=== PATIENT | male | born 1985 | race Caucasian/White ===

== ENCOUNTER 2017-10-25 19:11 | Emergency (ER) | payer OTHER ==
[~2017-10-25] VITALS: Ht 182.9 cm; Wt 110.9 kg
[2017-10-25] MEDS ORDERED: DEPAKOTE500 MG PO (19:21)
[2017-10-25] MEDS ORDERED: STRATTERA40 MG PO (19:21)
[2017-10-25] MEDS ORDERED: BUSPAR10 MG PO (19:22)
[2017-10-25] MEDS ORDERED: PROZAC40 MG PO (19:22)
[2017-10-25] MEDS ORDERED: AMPHETAMINE SAL30 MG PO (19:23)
[2017-10-25] MEDS ORDERED: DEPAKENE250 MG PO (19:23)
[2017-10-25] MEDS ORDERED: PAXIL10 MG PO (19:24)
[2017-10-25] MEDS ORDERED: ROBAXIN750 MG PO (19:24)
[2017-10-25] MEDS ORDERED: MOTRIN800 MG PO (19:24)
[2017-10-25] MEDS ORDERED: SUBOXONE 8 MG-1 EAC2 SL (19:25)
[2017-10-25] MEDS ORDERED: BUSPAR15 MG PO (19:26)
[2017-10-25] MEDS ORDERED: PAMELOR50 MG PO (19:27)
[2017-10-25] MEDS ORDERED: NEURONTIN600 MG PO (19:27)
[2017-10-25] MEDS ORDERED: SEROQUEL400 MG PO (19:27)
[2017-10-25 21:53] LABS: HEMATOCRIT 37.1 % (38.0-50.0); HEMOGLOBIN 12.5 G/DL (12.5-16.6); MCHC 33.7 G/DL (30.0-36.0); MCV 89.2 FL (86-99); PLATELET COUNT 220 K/uL (156-360); RBC DIS.WIDTH-CV 13.1 % (11.8-14.6); RBC DIS.WIDTH-SD 42.9 % (39-53); RED BLOOD COUNT 4.16 M/uL (4.00-5.50); WHITE BLOOD COUNT 6.7 K/uL (4.1-10.2)
[2017-10-25 22:03] LABS: ALBUMIN 4.6 g/dL (3.2-4.8); D-DIMER ELISA < 150.00 ng/mLDDU (<230)
[2017-10-25 22:04] LABS: CHLORIDE 102 mEq/L (99-109); POTASSIUM 3.9 mEq/L (3.7-5.4); SODIUM 139 mEq/L (136-147)
[2017-10-25 22:06] LABS: GLUCOSE 87 mg/dL (70-99); TOTAL PROTEIN 7.5 g/dL (6.4-8.3)
[2017-10-25 22:08] LABS: TOTAL BILIRUBIN 0.5 mg/dL (0.0-1.0)
[2017-10-25 22:09] LABS: ALKALINE PHOSPHATASE 70 IU/L (3-129)
[2017-10-25 22:10] LABS: GFR ESTIMATE (CALCULATED) > 59 mL/min/ (58.99-99999)
[2017-10-25 22:11] LABS: AST (GOT) 26 IU/L (2-34); UREA NITROGEN (BUN) 12 mg/dL (9-23)
[2017-10-25 22:12] LABS: ALT (GPT) 20 IU/L (3-49)
[2017-10-25 22:13] LABS: CREATINE KINASE 262 IU/L (1-294); LIPASE 12 U/L (1.0-51.0)
[2017-10-25 22:13] LABS: TROP-I INTERPRETATION NEGATIVE; TROPONIN-I < 0.01 ng/mL (0.0-0.30)
[2017-10-25 22:56] VITALS: BP 132/85
== END 2017-10-25 23:11 | disposition home or self-care (01) ==
LOC: EME 19:11
PROVIDERS: Emergency Medicine
DX: R07.9 Chest pain, unspecified (principal); F17.200 Nicotine dependence, unspecified, uncomplicated; Z79.891 Long term (current) use of opiate analgesic; Z86.79 Personal history of other diseases of the circulatory system; Z91.030 Bee allergy status
CPT/HCPCS: 71046; 80053; 82550; 83690; 84484; 85027; 85379; 93005; 99281; 99284; J1885; J7030

== ENCOUNTER 2017-11-03 12:58 | Emergency (ER) | payer OTHER ==
[~2017-11-03] VITALS: Ht 182.9 cm; Wt 102.6 kg
[~2017-11-03 12:58] MED LIST: AMPHETAMINE SAL30 MG PO; BUSPAR10 MG PO; BUSPAR15 MG PO; DEPAKENE250 MG PO; DEPAKOTE500 MG PO; MOTRIN800 MG PO; NEURONTIN600 MG PO; PAMELOR50 MG PO; PAXIL10 MG PO; PROZAC40 MG PO; ROBAXIN750 MG PO; SEROQUEL400 MG PO; STRATTERA40 MG PO; SUBOXONE 8 MG-1 EAC2 SL
[2017-11-03 14:45] LABS: HEMATOCRIT 36.9 % (38.0-50.0); HEMOGLOBIN 12.6 G/DL (12.5-16.6); MCH 30.4 PG (29.0-34.0); MCHC 34.1 G/DL (30.0-36.0); MCV 88.9 FL (86-99); PLATELET COUNT 189 K/uL (156-360); RBC DIS.WIDTH-CV 12.8 % (11.8-14.6); RBC DIS.WIDTH-SD 42.1 % (39-53); RED BLOOD COUNT 4.15 M/uL (4.00-5.50); WHITE BLOOD COUNT 5.3 K/uL (4.1-10.2)
[2017-11-03 14:55] LABS: ALBUMIN 4.4 g/dL (3.2-4.8); CHLORIDE 104 mEq/L (99-109); POTASSIUM 3.8 mEq/L (3.7-5.4); SODIUM 143 mEq/L (136-147)
[2017-11-03 14:57] LABS: GLUCOSE 103 mg/dL (70-99)
[2017-11-03 14:58] LABS: TOTAL PROTEIN 7.4 g/dL (6.4-8.3)
[2017-11-03 14:59] LABS: TOTAL BILIRUBIN 0.6 mg/dL (0.0-1.0)
[2017-11-03 15:00] LABS: SERUM ETHYL ALCOHOL < 10 mg/dL
[2017-11-03 15:01] LABS: ALKALINE PHOSPHATASE 65 IU/L (3-129); CREATININE 1.2 mg/dL (0.6-1.3); GFR ESTIMATE (CALCULATED) > 59 mL/min/ (58.99-99999)
[2017-11-03 15:02] LABS: UREA NITROGEN (BUN) 14 mg/dL (9-23)
[2017-11-03 15:03] LABS: AST (GOT) 57 IU/L (2-34)
[2017-11-03 15:04] LABS: ALT (GPT) 24 IU/L (3-49)
[2017-11-03 15:44] LABS: APPEARANCE CLEAR ((CLEAR)); BILIRUBIN SMALL; BLOOD NEGATIVE; COLOR AMBER ((YELLOW)); GLUCOSE (STRIP) NEGATIVE; KETONES 5; LEUKOCYTES NEGATIVE; NITRITE NEGATIVE; PROTEIN (STRIP) 100; SPECIFIC GRAVITY 1.035 (1.000-1.030)
[2017-11-03 15:50] LABS: BACTERIA NONE SEEN /HPF; EPITHELIAL CELLS NONE SEEN /HPF; MUCUS 1+ /LPF; UCUL ADDED? NO; WHITE BLOOD CELLS 0-5 /HPF (0-5)
[2017-11-03 15:59] LABS: AMPHETAMINE PRESUMPTIVE POSITIVE (500 ng/mL); BARBITURATES PRESUMPTIVE POSITIVE (200 ng/mL); BENZODIAZEPINES PRESUMPTIVE POSITIVE (150 ng/mL); BUPRENORPHINE NEGATIVE (10 ng/mL); COCAINE PRESUMPTIVE POSITIVE (150 ng/mL); METHADONE NEGATIVE (200 ng/mL); METHAMPHETAMINE NEGATIVE (500 ng/mL); OPIATES (MORPHINE) NEGATIVE (100 ng/mL); OXYCODONE NEGATIVE (100 ng/mL); PHENCYCLIDINE NEGATIVE (25 ng/mL); PROPOXYPHENE NEGATIVE (300 ng/mL); THC CANNABINOIDS NEGATIVE (50 ng/mL); TRICYCLIC ANTIDEPRESSANTS PRESUMPTIVE POSITIVE (300 ng/mL)
[2017-11-03 16:26] VITALS: BP 105/66
[2017-11-03 16:33] LABS: BENZODIAZEPINES, URINE SCREEN Negative (200 ng/mL)
== END 2017-11-03 16:42 ==
LOC: EME 12:58
PROVIDERS: Emergency Medicine
DX: F15.10 Other stimulant abuse, uncomplicated (principal); F14.10 Cocaine abuse, uncomplicated; F13.10 Sedative, hypnotic or anxiolytic abuse, uncomplicated; F19.10 Other psychoactive substance abuse, uncomplicated; F17.200 Nicotine dependence, unspecified, uncomplicated
CPT/HCPCS: 80053; 81003; 84999; 85027; 99281; 99285; G0480; J2310

== ENCOUNTER 2017-11-21 06:26 | Inpatient (IN) | payer OTHER ==
[~2017-11-21] VITALS: Ht 182.9 cm; Wt 107.1 kg
[2017-11-21 06:58] LABS: HEMATOCRIT 36.2 % (38.0-50.0); HEMOGLOBIN 12.3 G/DL (12.5-16.6); MCH 29.8 PG (29.0-34.0); MCV 87.7 FL (86-99); RBC DIS.WIDTH-CV 12.4 % (11.8-14.6); RBC DIS.WIDTH-SD 39.6 % (39-53); RED BLOOD COUNT 4.13 M/uL (4.00-5.50); WHITE BLOOD COUNT 6.7 K/uL (4.1-10.2)
[2017-11-21 06:59] LABS: PLATELET COUNT 270 K/uL (156-360)
[2017-11-21 08:07] LABS: CHLORIDE 103 MEQ/L (99-109); CREATININE 0.9 MG/DL (0.6-1.3); GFR ESTIMATE (CALCULATED) > 59 mL/min/ (58.99-99999); GLUCOSE 91 mg/dL (70-99); POTASSIUM 4.4 MEQ/L (3.7-5.4); SERUM ETHYL ALCOHOL < 10 mg/dL; SODIUM 141 MEQ/L (136-147); UREA NITROGEN (BUN) 15 mg/dL (9-23)
[2017-11-21 08:24] LABS: VALPROIC ACID (DEPAKOTE) 15.4 MCG/ML (50-100)
[2017-11-21 08:32] LABS: AMPHETAMINE NEGATIVE (500 ng/mL); BARBITURATES NEGATIVE (200 ng/mL); BENZODIAZEPINES PRESUMPTIVE POSITIVE (150 ng/mL); BUPRENORPHINE PRESUMPTIVE POSITIVE (10 ng/mL); COCAINE PRESUMPTIVE POSITIVE (150 ng/mL); METHADONE NEGATIVE (200 ng/mL); METHAMPHETAMINE PRESUMPTIVE POSITIVE (500 ng/mL); OPIATES (MORPHINE) NEGATIVE (100 ng/mL); OXYCODONE NEGATIVE (100 ng/mL); PHENCYCLIDINE NEGATIVE (25 ng/mL); PROPOXYPHENE NEGATIVE (300 ng/mL); THC CANNABINOIDS NEGATIVE (50 ng/mL); TRICYCLIC ANTIDEPRESSANTS PRESUMPTIVE POSITIVE (300 ng/mL)
[2017-11-21 09:04] LABS: BENZODIAZEPINES, URINE SCREEN POSITIVE (200 ng/mL)
[2017-11-21] MEDS ORDERED: DEPAKENE250 MG PO ×2 (10:07→10:13)
[2017-11-21 16:43] VITALS: BP 132/78
[2017-11-22 07:25] VITALS: BP 104/54
[2017-11-22 15:17] VITALS: BP 100/63
[2017-11-23 07:29] VITALS: BP 100/58
[2017-11-23 17:18] VITALS: BP 111/67
[2017-11-24 08:01] VITALS: BP 116/59
[2017-11-24 16:57] VITALS: BP 120/69
[2017-11-25 07:39] VITALS: BP 103/51
[2017-11-25 15:18] VITALS: BP 114/60
[2017-11-26 07:33] VITALS: BP 109/59
[2017-11-26 16:03] VITALS: BP 127/78
[2017-11-27 07:45] VITALS: BP 11/58
[2017-11-27] MEDS ORDERED: TRAZODONE HCL100 MG PO (08:58)
[2017-11-27] MEDS ORDERED: CITALOPRAM HBR10 MG PO (08:58)
[2017-11-27] MEDS ORDERED: SEROQUEL400 MG PO (08:58)
[2017-11-27] MEDS ORDERED: NEURONTIN600 MG PO (08:58)
== END 2017-11-27 10:29 | disposition other institution (70) | DRG 881 ==
LOC: EME → EDBD 06:26 → 1WEST 11:47 → EDOF 11:47 → 1WEST 11:47 → EDOF 11:49 → ENRESERV 15:55 → 1WEST 15:55
PROVIDERS: Emergency Medicine
DX: F43.21 Adjustment disorder with depressed mood (principal); R45.851 Suicidal ideations; F11.10 Opioid abuse, uncomplicated; F15.10 Other stimulant abuse, uncomplicated; F14.10 Cocaine abuse, uncomplicated; F13.10 Sedative, hypnotic or anxiolytic abuse, uncomplicated; F10.10 Alcohol abuse, uncomplicated; G40.909 Epilepsy, unspecified, not intractable, without status epilepticus; Y90.0 Blood alcohol level of less than 20 mg/100 ml; F41.9 Anxiety disorder, unspecified; F17.200 Nicotine dependence, unspecified, uncomplicated; Z81.8 Family history of other mental and behavioral disorders
CPT/HCPCS: 80048; 80164; 84999; 85027; 90839; 97150 GO; 97165 GO; 99281; 99285; G0480; J0572; J0574; Q0177

== ENCOUNTER 2017-12-12 18:12 | Emergency (ER) | payer OTHER ==
[~2017-12-12] VITALS: Ht 182.9 cm; Wt 101.3 kg
[~2017-12-12 18:12] MED LIST changes: +CITALOPRAM HBR10 MG PO; +TRAZODONE HCL100 MG PO
[2017-12-12 21:43] VITALS: BP 104/70
== END 2017-12-12 21:51 | disposition home or self-care (01) ==
LOC: EME 18:12
DX: T40.1X1A Poisoning by heroin, accidental (unintentional), initial encounter (principal); F32.9 Major depressive disorder, single episode, unspecified; I10 Essential (primary) hypertension; I45.6 Pre-excitation syndrome; K21.9 Gastro-esophageal reflux disease without esophagitis; F17.200 Nicotine dependence, unspecified, uncomplicated; Z91.030 Bee allergy status
CPT/HCPCS: 99281; 99283